=== PATIENT | male | born 1980 | race Caucasian/White ===

== ENCOUNTER 2018-08-29 14:53 | Inpatient (IN) ==
[2018-08-29] MEDS ORDERED: ONDANSETRON 4 MG/2 ML VIAL IV STA (15:07)
[2018-08-29] MEDS ORDERED: fentaNYL 100 MCG/2 ML VIAL IV STA (15:07)
[2018-08-29 15:18] LABS: Basophils % 0.2 % (0.0-0.8); Hemoglobin 15.7 GM/DL (14.0-18.0); Immature Granulocytes % 0.4 %; Immature Granulocytes Absolute 0.08 #; Lymphocytes # 1.6 10*3/uL (1.4-4.0); Lymphocytes % 7.5 % (21.2-54.2); Mean Corpuscular HGB Conc 34.1 GM/DL (32-36); Mean Platelet Volume 9.9 FL (9.6-12.0); Monocytes % 5.1 % (1.7-12.7); Neutrophils % 86.8 % (38.7-73.9); Platelet Count 243 T/CUMM (130-400); Red Blood Count 5.54 MC/CUMM (3.8-5.5); White Blood Count 21.5 T/CUMM (4-12)
[2018-08-29] MEDS ORDERED: BUPIVACAINE 0.25% /EPI 10 ML VIAL ONE (15:21)
[2018-08-29] MEDS ORDERED: TISSUE ADHESIVE 1 EACH APPLICATOR TOP ONE (15:21)
[2018-08-29] MEDS ORDERED: LIDOCAINE 1%/EPI INJ 20 ML VIAL ONE (15:22)
[2018-08-29 15:30] LABS: INR 0.9; PT Patient Result 9.8 SECS; Partial Thromboplastin Time 27.4 SECS (0-40)
[2018-08-29] MEDS ORDERED: ONDANSETRON 4 MG/2 ML VIAL IV PRN (15:37)
[2018-08-29] MEDS ORDERED: MORPHINE 4 MG/1 ML VIAL IV PRN (15:37)
[2018-08-29] MEDS ORDERED: ACETAMINOPHEN 325 MG TABLET PO PRN (15:37)
[2018-08-29 15:45] LABS: Albumin 4.3 G/DL (3.4-5.0); Bilirubin,Total 0.6 MG/DL (0.2-1.0); Calcium 9.4 MG/DL (8.5-10.1); Osmolality,Calculated 278.4 MOS/KG (273-304); Total Protein 8.2 G/DL (6.4-8.3)
[2018-08-29] MEDS: LACTATED RINGERS 1,000 ML IV SCH ×3 (15:55→19:07)
[2018-08-29 16:20] LABS: Lymphocytes 7 % (20-55); Platelet Estimate Adequate; Segmented Neutrophils 87 % (50-85); Total Cells Counted 100
[2018-08-29] MEDS ORDERED: MEPERIDINE 25 MG/1 ML VIAL ONE (16:53)
[2018-08-29] MEDS ORDERED: MIDAZOLAM 2 MG/2 ML VIAL ONE (17:02)
[2018-08-29] MEDS ORDERED: DEXAMETHASONE 4 MG/1 ML VIAL ONE (17:02)
[2018-08-29] MEDS ORDERED: KETOROLAC 30 MG/1 ML VIAL ONE (17:02)
[2018-08-29] MEDS ORDERED: fentaNYL 100 MCG/2 ML VIAL ONE (17:02)
[2018-08-29] MEDS ORDERED: PROPOFOL 200 MG/20 ML VIAL IV ONE (17:02)
[2018-08-29] MEDS ORDERED: ONDANSETRON 4 MG/2 ML VIAL ONE (17:02)
[2018-08-29] MEDS ORDERED: SEVOFLURANE 1 UNIT/15 MINUTE INH ONE (17:02)
[2018-08-29] MEDS ORDERED: GLYCOPYRROLATE 0.4 MG/2 ML VIAL ONE (17:03)
[2018-08-29] MEDS ORDERED: ROCURONIUM 100 MG/10 ML VIAL IV ONE (17:03)
[2018-08-29] MEDS ORDERED: NEOSTIGMINE 10 MG/10 ML VIAL ONE (17:03)
[2018-08-29] MEDS ORDERED: LACTATED RINGERS 2,000 ML IV ONE (17:03)
[2018-08-29] MEDS: POTASSIUM CHLORIDE INJ 10 MEQ in LACTATED RINGERS 1,000 ML IV SCH (21:26)
[2018-08-29] MEDS: cefOXitin 2,000 MG in SYRINGE 1 EACH IV SCH (21:28)
[2018-08-30] MEDS: LACTATED RINGERS 1,000 ML IV SCH ×2 (02:05→07:50)
[2018-08-30] MEDS: cefOXitin 2,000 MG in SYRINGE 1 EACH IV SCH ×2 (03:37→09:07)
[2018-08-30 05:24] LABS: Basophils % 0.1 % (0.0-0.8); Eosinophils % 0.1 % (0.00-10.9); Hematocrit 40.5 VOL% (42.0-52.0); Hemoglobin 13.1 GM/DL (14.0-18.0); Immature Granulocytes % 0.5 %; Immature Granulocytes Absolute 0.08 #; Lymphocytes # 1.6 10*3/uL (1.4-4.0); Lymphocytes % 10.9 % (21.2-54.2); Mean Corpuscular HGB Conc 32.3 GM/DL (32-36); Mean Corpuscular Volume 85.4 FL (87-102); Mean Platelet Volume 10.1 FL (9.6-12.0); Monocytes % 5.1 % (1.7-12.7); Neutrophils % 83.3 % (38.7-73.9); Platelet Count 220 T/CUMM (130-400); Red Blood Count 4.74 MC/CUMM (3.8-5.5); Red Cell Distribution Width 13.2 % (9.3-17.3); White Blood Count 14.8 T/CUMM (4-12)
[2018-08-30 06:01] LABS: Calcium 9.1 MG/DL (8.5-10.1)
[2018-08-30] MEDS: POTASSIUM CHLORIDE INJ 10 MEQ in LACTATED RINGERS 1,000 ML IV SCH (06:35)
[2018-08-30] MEDS ORDERED: PANTOPRAZOLE 40 MG TABLET PO SCH (09:00)
[2018-08-30 09:50] VITALS: BP 121/79
== END 2018-08-30 11:00 | disposition home or self-care (01) | DRG 343 ==
LOC: N.ED 14:53 → N.EDINP 15:37 → N.3E 15:47
PROVIDERS: ADMIT Surgery; ATTEND Surgery